=== PATIENT | female | born 1945 | race Caucasian/White ===

== ENCOUNTER 2020-10-25 05:28 | Emergency (ER) | payer OTHER, SELFPAY ==
--- NOTE | 2020-10-25 05:59 | ECG_ITS ---
Test Reason : ANXIETY Blood Pressure : / mmHG Vent. Rate : 060 BPM Atrial Rate : 060 BPM P-R Int : 158 ms QRS Dur : 094 ms QT Int : 450 ms P-R-T Axes : 041 -20 024 degrees QTc Int : 450 ms Normal sinus rhythm Left ventricular hypertrophy with repolarization abnormality Cannot rule out Septal infarct , age undetermined Abnormal ECG No previous ECGs available Referred By: Mark Quinn Electronically Signed By:MEDARDO FLORES MD
--- NOTE | 2020-10-25 06:02 | ED.GENADULT ---
HPI - General Adult General Chief complaint: General Medical Stated complaint: RIGHT FLANK PAIN Time Seen by Provider: 10/25/20 05:58 Source: patient Mode of arrival: EMS Limitations: no limitations History of Present Illness HPI narrative: patient only [place] speaking lives in [place] has situation at home her son with Marfan syndrome had a aortic surgery done and now he has a stroke patient not able to sleep well lot of anxiety complaining of palpitation multiple complaints earlier she said chest pain at home none now history of similar episode in the past when they diagnosed her with anxiety Related Data Previous Rx's Medication Instructions Recorded lorazepam [Ativan] 1 mg PO BEDTIME PRN #7 tab 10/25/20 Allergies Allergy/AdvReac Type Severity Reaction Status Date / Time penicillin G Allergy Unknown Anaphylaxis Verified 10/25/20 05:59 Review of Systems Review of Systems: Yes all other systems are reviewed and are negative [facility] Past Medical History Medical History (Updated 10/25/20 @ 06:10 by Sue Hodges) Blindness Social History Social History Advance Directives: No Advance Directives Information Provided: No Physical Exam Vital Signs: Appearance: Alert. Oriented X3. No acute distress. anxious Eyes: PERRLA, No Nystagmus ENT: Pharynx normal. Oral Mucosa moist Neck: Normal inspection. Neck supple. CVS: Normal heart rate and rhythm. Pulses normal. Respiratory: No respiratory distress. Equal air entry bilateral, no wheezing/rales/rhonchi Abdomen: Soft and nontender. Bowel sounds are present, no mass palpable, no CVA tenderness Skin: Skin warm and dry. Normal skin color. Normal skin turgor. Extremities: No lower extremity edema. No calf tenderness Neuro: Oriented X 3. No motor deficit. No sensory deficit.No cerebellar signs , cranial nerves II-XII intact Medical Decision Making MDM Narrative Medical decision making narrative: patient with multiple complaints case discussed with patient's son who says patient has anxiety and has similar complaints in the past EKG without any acute ischemic changes no arrhythmias noticed will discharge patient home on Ativan ECG Data Attestation: I personally reviewed and interpreted this ECG as follows: Interpretation: normal sinus rhythm LVH with repolarization abnormalities normal intervals normal axis no acute ischemic changes Discharge Plan Discharge Clinical Impression: Anxiety Patient Disposition: Home, Self-Care Instructions: Anxiety (ED) Additional Instructions: take medication as advised for anxiety. Follow-up with your PCP Prescriptions: New lorazepam [Ativan] 1 mg tablet 1 mg PO BEDTIME PRN (Reason: anxiety) Qty: 7 RF: 0 Print Language: Palauan
[2020-10-25] MEDS: LORazepam 1 MG TABLET PO (06:06)
[2020-10-25 06:08] VITALS: BP 175/65; PULSE 63; RESP 16; TEMP 36.9; O2SAT 98; BMI 26.2
== END 2020-10-25 06:29 | disposition home or self-care (01) ==
PROVIDERS: Emergency Provider Internal Medicine
DX: F41.9 Anxiety disorder, unspecified (principal); Z86.73 Personal history of transient ischemic attack (TIA), and cerebral infarction without residual deficits; Q87.40 Marfan syndrome, unspecified
CPT/HCPCS: 93005; 99283